=== PATIENT | male | born 1980 | race Caucasian/White ===

== ENCOUNTER → 2016-12-09 | Outpatient (CLI) | payer OTHER | END | disposition home or self-care (01) | LOC: C.LABSPEC 15:01 | PROVIDERS: ATTEND Family Medicine | DX: R30.0 Dysuria (principal) ==

== ENCOUNTER → 2017-02-04 | Outpatient (CLI) | payer OTHER ==
--- NOTE | 2017-02-04 15:22 | DIAGNOSTIC IMAGING REPORT ---
[facility] CLINICAL HISTORY: Abdominal pain. COMPARISON STUDY: None. FINDINGS: The bowel gas pattern is normal. No renal calculi are identified. A few pelvic calcifications are noted, the largest of which is a 5 mm right pelvic calcification. There are scrotal surgical clips. Skeletal structures are unremarkable. IMPRESSION: 1. No evidence for a bowel obstruction. 2. Several pelvic calcifications, including a 5 mm right pelvic calcification. These statistically reflect phleboliths although distal ureteral calculi could appear similar. Electronically signed by: Andre Arnold M.D. 02/04/2017 3:19 PM Dictated Date/Time: 02/04/2017 3:17 PM
[2017-02-04 15:37] LABS: BASO % 0.5 %; BASO ABS # 0.04 K/uL (0-0.2); COMPLETE YES; EOS % 3.4 %; HEMATOCRIT 44.9 % (42-52); IG% 0.1 %; LYMPH ABS # 3.17 K/uL (1.2-3.4); MEAN CELL VOLUME 90.7 fL (80-100); MEAN CORPUSCULAR HEMOGLOBIN 30.9 pg (25-34); MEAN CORPUSCULAR HGB CONC 34.1 g/dl (32-36); MEAN PLATELET VOLUME 9.6 fL (7.4-10.4); MONO % 6.7 %; NEUT % 49.3 %; PLATELET COUNT 259 K/uL (130-400); RED BLOOD COUNT 4.95 M/uL (4.7-6.1); WHITE BLOOD COUNT 7.92 K/uL (4.8-10.8)
[2017-02-04 16:07] LABS: BLOOD UREA NITROGEN 14 mg/dl (7-18); BUN/CREATININE RATIO 13.1 (10-20); CALCIUM 9.2 mg/dl (8.5-10.1); CARBON DIOXIDE 30 mmol/L (21-32); CHLORIDE 104 mmol/L (98-107); GLUCOSE 89 mg/dl (70-99); POTASSIUM 3.8 mmol/L (3.5-5.1); SODIUM 140 mmol/L (136-145)
== END | disposition home or self-care (01) ==
LOC: C.RAD 14:55
PROVIDERS: ATTEND Urology
DX: R10.9 Unspecified abdominal pain (principal)

== ENCOUNTER → 2017-03-19 | Outpatient (CLI) | payer OTHER ==
--- NOTE | 2017-03-19 14:33 | DIAGNOSTIC IMAGING REPORT ---
Limited abdominal ultrasound ABDOMEN FOR HERNIA CLINICAL HISTORY: Groin pain TECHNIQUE: Ultrasound COMPARISON STUDY: None FINDINGS: Findings consistent with a reducible bilateral fat-containing inguinal hernias. No evidence for bowel containment. IMPRESSION: Bilateral reducible fat-containing inguinal hernias. No evidence of bowel containment. Electronically signed by: Jose Luis Mi M.D. 03/19/2017 2:31 PM Dictated Date/Time: 03/19/2017 2:30 PM
== END | disposition home or self-care (01) ==
LOC: C.ULTR 13:34
PROVIDERS: ATTEND Nurse Practitioner Family
DX: R10.30 Lower abdominal pain, unspecified (principal)

== ENCOUNTER 2023-06-24 22:53 | Observation (INO) ==
[2023-06-24] MEDS ORDERED: PANTOprazole 40 MG in SYRINGE 0 ML IV ONE (23:25)
[2023-06-24] MEDS ORDERED: ONDANSETRON INJ 2 MG/ML 2 ML VIAL IV STA (23:25)
[2023-06-24] MEDS ORDERED: MoRPHine SULFATE 4 MG/ML 1 ML CARP\\VIAL IV PRN (23:25)
[2023-06-24] MEDS ORDERED: AMPICILLIN/SULBACTAM SOD 3,000 MG in 0.9 % SODIUM CHLORIDE 100 ML IV STA (23:25)
[2023-06-25 00:04] LABS: Basophils # (auto) 0.08 K/uL (0.00-0.20); Basophils % (auto) 0.9 %; Eosinophils # (auto) 0.34 K/uL (0.00-0.50); Eosinophils % (auto) 3.9 %; Hematocrit (blood only) 42.6 % (42.0-52.0); Hemoglobin 14.3 g/dl (14.0-18.0); Immature Granulocytes # (auto) 0.04 K/uL (0.01-0.20); Immature Granulocytes % (auto) 0.5 %; Lymphocytes # (auto) 3.36 K/uL (1.20-3.40); Lymphocytes % (auto) 38.6 %; Mean Corpuscular Hemoglobin 31.7 pg (25.0-34.0); Mean Corpuscular Hgb Conc 33.6 g/dL (32.0-36.0); Mean Corpuscular Volume 94.5 fL (80.0-100.0); Mean Platelet Volume 9.2 fL (9.4-12.4); Monocytes % (auto) 9.2 %; Neutrophils # (auto) 4.09 K/uL (1.40-6.50); Neutrophils % (auto) 46.9 %; Platelet Count 220 K/uL (130-400); RDW Coefficient of Variation 12.3 % (11.5-14.5); RDW Standard Deviation 42.6 fL (36.4-46.3); Red Blood Count 4.51 M/uL (4.70-6.10); White Blood Count 8.71 K/ul (4.8-10.8)
[2023-06-25 00:14] LABS: Albumin Globulin Ratio 2.1 (0.9-2); Albumin Level 4.4 gm/dl (3.4-5.0); Bilirubin,Total 0.3 mg/dl (0.2-1.0); Calcium 9.2 mg/dl (8.6-10.3); Creatinine Clr Calc Pharmacy 103.5 ml/min; Est GFR (African American) 113.8 ml/min; Est GFR (Non-African American) 98.2 ml/min; Globulin 2.1 gm/dl (2.5-4.0); Potassium 3.7 mmol/L (3.5-5.1); Total Protein 6.5 gm/dl (6.0-8.3)
--- NOTE | 2023-06-25 00:17 | Emergency Department Note ---
History of Present Illness General Chief complaint: Animal Bite Stated complaint: DOG BITE Time Seen by Provider: 06/24/23 23:19 History of Present Illness Maximum Pain Intensity: 8 This is a 43-year-old male presenting to the emergency department from home for evaluation of dog bite to the face. Patient states that he leaned forward to kiss his daughter luis, and the daughter was holding food. The animal jumped up and is believed was going for the food when it bit the patient's face. Patient does have extensive laceration to the right side cheek, lower lip, and mild laceration to the left side cheek. The dog is the family pet and is believed to be otherwise healthy. Patient is up-to-date on immunizations. He rates his discomfort an 8/10. Home Medications Medication Instructions Recorded Confirmed Type No Known Home Medications 06/25/23 06/25/23 History Allergies Allergy/AdvReac Type Severity Reaction Status Date / Time No Known Allergies Allergy Unknown Verified 06/25/23 00:52 Past Med/Surg History Medical History No chronic diseases present Surgical History No significant past surgical history Social History Smoking Status: Current every day smoker Preferred Language: [place] Feels Safe at Home: Yes Review of Systems A total of 10 systems reviewed and were otherwise negative Physical Exam Vital Signs Vital Signs - 24 hr 06/24/23 22:55 06/24/23 23:56 06/25/23 00:29 Temperature 36.4 C L Temperature Source Temporal Artery Scan Pulse Rate 67 92 H Pulse Rate [Right Finger] 74 Pulse Rate from SpO2 Sensor 80 Pulse Rhythm [Right Finger] Regular Pulse Strength [Right Finger] Normal Respiratory Rate 16 17 19 Respiratory Effort / Characteristics Non-Labored Spontaneous Respiratory Depth Normal Respiratory Pattern Regular Blood Pressure 179/101 H 124/82 Blood Pressure [Right Arm] 137/87 Blood Pressure Mean 127 96 Blood Pressure Mean [Right Arm] 103 Blood Pressure Position [Right Arm] Sitting Pulse Oximetry 98 94 96 Oxygen Delivery Method Room Air Room Air Room Air Sepsis Recent Fever Within 48 Hours No Sepsis New/Unexplained Change in Mental Status No Sepsis Action Taken by Nursing No Action Required VITALS: Vitals are noted on the nurse's note and reviewed by myself. Vital signs stable. GENERAL: Well-developed, well-nourished, white male, who is in moderate discomfort secondary to his presenting complaint. HEAD: Normocephalic atraumatic. EARS: External ear normal. External auditory canals clear, tympanic membranes pearly contreras without erythema or effusion bilaterally. EYES: Pupils equal round and reactive to light and accommodation. Conjunctivae without injection, sclerae without icterus. Extraocular movements intact. HEART: Regular rate and rhythm without murmurs gallops or rubs. LUNGS: Clear to auscultation bilaterally without wheezes, rales or rhonchi. No retractions or accessory muscle use. NEURO: Patient was alert and oriented to person place and time. CN II through XII grossly intact. SKIN: The skin was with dog bite laceration to the face. There is a roughly 8 cm J-shaped laceration from the right mid cheek going inferiorly over the lateral margin of the right side lips, and then back up through the lower lip. There is additional injury beneath the left side of the lower lip onto the cheek as well, measuring approximately 5.0 cm. This does cross the vermilion border. The laceration is a through and through laceration at the lips and partially to the cheek on the right. Lacerations gape significantly with movement of the mouth and opening and closing of the jaw. Course Administered Medications Morphine Sulfate (Morphine Sulfate 4 Mg/Ml 1 Ml Carp\Vial) 4 mg IV Q30M PRN PRN Reason: Pain Stop: 07/08/23 23:24 Last Admin: 06/24/23 23:57 Dose: 4 mg Documented By: SHARRI Discontinued Medications Chlorhexidine Gluconate (Chlorhexidine Gluconate 0.12% 480 Ml) 15 ml MT NOW STA Stop: 06/25/23 00:39 Last Admin: 06/25/23 01:03 Dose: 15 ml Documented By: JOAN Ampicillin Sodium/Sulbactam Sodium 3,000 mg/ Sodium Chloride 108 mls @ 200 mls/hr IV NOW STA; Protocol Stop: 06/24/23 23:57 Last Admin: 06/25/23 01:02 Dose: 200 mls/hr Documented By: JOAN Pantoprazole Sodium 40 mg/ (Syringe) 10 mls @ 5 mls/min IV NOW ONE Stop: 06/24/23 23:26 Last Admin: 06/25/23 01:02 Dose: 5 mls/min Documented By: JOAN Ondansetron HCl (Ondansetron Inj 2 Mg/Ml 2 Ml Vial) 4 mg IV NOW STA Stop: 06/24/23 23:26 Last Admin: 06/24/23 23:57 Dose: 4 mg Documented By: SHARRI Medical Decision Making Differential Diagnosis Differential diagnosis includes, but is not limited to: Dog bite, laceration, abrasion, foreign body, infection, sprain, strain, fracture, dislocation, subluxation, contusion, and others Laboratory Data 06/24/23 23:27 06/24/23 23:27 Lab Results 06/24/23 06/24/23 Range/Units 23:27 23:27 WBC 8.71 (4.8-10.8) K/ul RBC 4.51 L (4.70-6.10) M/uL Hgb 14.3 (14.0-18.0) g/dl Hct 42.6 (42.0-52.0) % MCV 94.5 (80.0-100.0) fL MCH 31.7 (25.0-34.0) pg MCHC 33.6 (32.0-36.0) g/dL RDW Std Deviation 42.6 (36.4-46.3) fL RDW Coeff of Alysa 12.3 (11.5-14.5) % Plt Count 220 (130-400) K/uL MPV 9.2 L (9.4-12.4) fL Immature Gran % (Auto) 0.5 % Neut % (Auto) 46.9 % Lymph % (Auto) 38.6 % Barbour % (Auto) 9.2 % Eos % (Auto) 3.9 % Baso % (Auto) 0.9 % Neut # (Auto) 4.09 (1.40-6.50) K/uL Lymph # (Auto) 3.36 (1.20-3.40) K/uL Barbour # (Auto) 0.80 H (0.11-0.59) K/uL Eos # (Auto) 0.34 (0.00-0.50) K/uL Baso # (Auto) 0.08 (0.00-0.20) K/uL Immature Gran # (Auto) 0.04 (0.01-0.20) K/uL Sodium 134 L (136-145) mmol/L Potassium 3.7 (3.5-5.1) mmol/L Chloride 103 (98-107) mmol/L Carbon Dioxide 21 (21-32) mmol/L Anion Gap 10 (3-11) BUN 15 (6-23) mg/dl Creatinine 0.94 (0.6-1.4) mg/dl Est Cr Clr Drug Dosing 103.5 ml/min Est GFR ( Amer) 113.8 ml/min Est GFR (Non-Af Amer) 98.2 ml/min BUN/Creatinine Ratio 16.0 (10-20) Glucose 99 (70-99(Fasting)) mg/dl Calcium 9.2 (8.6-10.3) mg/dl Total Bilirubin 0.3 (0.2-1.0) mg/dl AST 26 (13-39) U/L ALT 25 (7-52) U/L Alkaline Phosphatase 58 (34-104) U/L Total Protein 6.5 (6.0-8.3) gm/dl Albumin 4.4 (3.4-5.0) gm/dl Globulin 2.1 L (2.5-4.0) gm/dl Albumin/Globulin Ratio 2.1 H (0.9-2) MDM Narrative Physical exam and history were performed. Nursing notes, EMR, and Medication List were personally reviewed. No social concerns were identified as barriers to patients care. Patient appears to have laceration to his face as described above. This is quite complicated on examination. IV access was established and labs were obtained. Patient was given IV Unasyn, IV morphine, and IV Zofran. He was given additional IV Protonix as he states that he swallowed blood and this is irritating his stomach. Patient was made n.p.o. and hydrated with normal saline. I did reach out to the on-call oral maxillofacial surgeon, Dr. Stoddard, and reviewed the case at length. Dr. Stoddard will take the patient to the operating room for definitive management. Dog bite form was completed. Please see Dr. Stoddard's dictation for further patient course, plan, disposition. The chart was completed utilizing [employer] Voice Recognition Software. Grammatical errors, random word insertions, pronoun errors, and incomplete sentences are an occasional consequence of this system due to software limita tions, ambient noise, and hardware issues. Any formal questions or concerns about the content, text, or information contained within the body of this dictation should be directly addressed to the provider for clarification. . Impression & Plan Dog bite of vermilion border of lower lip, Dog bite of chin, Dog bite of cheek Discharge Plan Visit Data Chief Complaint: Animal Bite Stated Complaint: DOG BITE ED Provider: Jose Luis Parisi ED Midlevel Provider: Juan Pablo Quintanilla Discharge Problem: Dog bite of vermilion border of lower lip, Dog bite of chin, Dog bite of cheek Patient Disposition: Admitted As Inpatient Discharge Instructions Interventions: ED Discharge Assessment Last Done: 06/25/23 01:39
[2023-06-25] MEDS ORDERED: CHLORHEXIDINE GLUCONATE 0.12% 480 ML MT STA (00:38)
[2023-06-25] MEDS ORDERED: oxyCODONE/ACETAMINOPHEN 5mg/325mg TAB PO PRN (00:40)
--- NOTE | 2023-06-25 00:46 | History & Physical Report ---
Date of Service June 25, 2023 Assessment & Plan (1) Dog bite of cheek: Plan: observation and plan debridement and repair in OR (2) Dog bite of chin: (3) Dog bite of vermilion border of lower lip: History of Present Illness Primary Care Provider: NO PCP Bitten by family dog Extensive lacerations of the face - chin- lips-keshawn boarders Deep to facial muscles Maximum Pain Intensity: 8 This is a 43-year-old male presenting to the emergency department from home for evaluation of dog bite to the face. Patient states that he leaned forward to kiss his daughter luis, and the daughter was holding food. The animal jumped up and is believed was going for the food when it bit the patient's face. Patient does have extensive laceration to the right side cheek, lower lip, and mild laceration to the left side cheek. The dog is the family pet and is believed to be otherwise healthy. Patient is up-to-date on immunizations. There is a roughly 8 cm J-shaped laceration from the right mid cheek going inferiorly over the lateral margin of the right side lips, and then back up through the lower lip. There is additional injury beneath the left side of the lower lip onto the cheek as well, measuring approximately 5.0 cm. The laceration is a through and through laceration at the lips and partially to the cheek on the right. Lacerations gape significantly with movement of the mouth and opening and closing of the jaw. I reviewed the procedures with Santiago and his . I will plan repair of this complex extensive facial, lip and chin lacerations in the OR this afternoon.All risks were reviewed --pain,swelling, infection, bleeding, scaring, wound care and follow up. Consent signed plan procedure as discussed with [facility] Outpatient after recovery from the GA/Procedure Allergies Allergy/AdvReac Type Severity Reaction Status Date / Time No Known Allergies Allergy Unknown Verified 06/25/23 00:52 Home Medications Medication Instructions Recorded Confirmed Type No Known Home Medications 06/25/23 06/25/23 History Past Med/Surg History Medical History No chronic diseases present Surgical History No significant past surgical history Social History Smoking Status: Current every day smoker Hx Alcohol Use: No Hx Substance Use: No Preferred Language: Slovak Communication Ability: Effective Community Director Required: No Beliefs That Will Affect Care: None Current Living Situation: Family Other Information That Helps Us Care for You: No Feels Safe at Home: Yes Safety Concerns: Feels Safe At This Time Assistive Devices: None Results & Data Results & Data Vital Signs (Past 12 Hours) Vital Signs Temp Pulse Pulse Resp BP BP Pulse Ox 06/25/23 00:29 92 H 19 124/82 96 06/24/23 23:56 74 17 137/87 94 06/24/23 22:55 36.4 C L 67 16 179/101 H 98 O2 Del Method 06/25/23 00:29 Room Air 06/24/23 23:56 Room Air 06/24/23 22:55 Room Air Code Status & VTE Plan VTE Prophylaxis Plan VTE Prophylaxis will be ordered: No Reason for no VTE drug order: Treatment not indicated PG Care Time/CCT Total # of Minutes Spent Total Time Spent with Patient: Total time spent is greater than 50% in coordination of care (as documented) at patient's floor/unit and/or counseling patient: Coding Level of Care Code 18776 INT INP/OBS CARE MIN Diagnoses Dog bite of cheek S01.459A; W54.0XXA Dog bite of chin S01.85XA; W54.0XXA Encounter type: initial encounter Dog bite of vermilion border of lower lip S01.551A; W54.0XXA Encounter type: initial encounter (2) Dog bite of chin Encounter type: initial encounter Qualified Code(s): S01.85XA - Open bite of other part of head, initial encounter; W54.0XXA - Bitten by dog, initial encounter (3) Dog bite of vermilion border of lower lip Encounter type: initial encounter Qualified Code(s): S01.551A - Open bite of lip, initial encounter; W54.0XXA - Bitten by dog, initial encounter
[2023-06-25] MEDS: MoRPHine SULFATE 2 MG/ML CARP IV PRN ×2 (05:26→11:48)
[2023-06-25] MEDS: AMPICILLIN/SULBACTAM SOD 3,000 MG in 0.9 % SODIUM CHLORIDE 100 ML IV SCH ×3 (05:52→18:23)
--- NOTE | 2023-06-25 14:16 | Anesthesiology Consultation ---
Date of Service June 25, 2023 Assessment & Plan Chart Review Chart Review: Acceptable Risk for Surgery and Patient NOT seen in Pre Admission Testing Consults Requested none ASA ASA2 Proposed Anesthesia Anesthesia Type: General History Surgery Operation Date: 06/25/23 07:00 Proposed Procedures p Suture Repair of 15 cm Lip Laceration - Remi Stoddard, DMD Height/Weight Height: 5 ft 10 in Weight: 82.4 kg Allergies Allergy/AdvReac Type Severity Reaction Status Date / Time No Known Allergies Allergy Unknown Verified 06/25/23 00:52 Medications Home Medications Medication Instructions Recorded Confirmed Last Taken No Known Home Medications 06/25/23 06/25/23 Unknown Active Medications Generic Name Dose Route Start Last Admin Trade Name Freq PRN Reason Stop Dose Admin Ampicillin Sodium/Sulbactam 108 mls @ 200 mls/hr 06/25/23 06:00 06/25/23 12:32 Sodium 3,000 mg/ Sodium IV 06/27/23 05:59 Infused Chloride Q6H LADY Infusion Protocol Morphine Sulfate 2 mg 06/25/23 02:59 06/25/23 11:48 Morphine Sulfate 2 Mg/Ml Carp IV 07/09/23 02:58 2 mg Q4 PRN Administration Pain Past Medical History Medical History No chronic diseases present HLD + tobacco smoker Exercise / Class Metabolic Activity II 4-5 Yardwork/Stairs/Walk up hill Past Surgical History Surgical History No significant past surgical history Past Anesthesia History No Hx of Anesthesia Complications and No Family Hx of Anesthesia Complications History of PONV No Hx of PONV and No Hx of Motion Sickness Social History Smoking Status: Current every day smoker Hx Alcohol Use: No Hx Substance Use: No Physical Exam Vital Signs Last Vital Signs Temp 36.9 C 06/25/23 08:56 Pulse 57 L 06/25/23 08:56 Resp 16 06/25/23 08:56 BP 132/80 06/25/23 08:56 Pulse Ox 96 06/25/23 08:56 O2 Del Method Room Air 06/25/23 08:56 Testing Laboratory Results 06/24/23 23:27 06/24/23 23:27
[2023-06-25] MEDS ORDERED: LACTATED RINGER'S 1,000 ML IV SCH (14:45)
[2023-06-25] MEDS ORDERED: ATROPINE SULFATE 0.1 MG/ML 10ML SYR IV PRN (14:52)
[2023-06-25] MEDS ORDERED: PROMETHAZINE HCL 12.5 MG in SODIUM CHLORIDE 0.9% 50 ML IV PRN (14:52)
[2023-06-25] MEDS ORDERED: ONDANSETRON INJ 2 MG/ML 2 ML VIAL IV PRN (14:52)
[2023-06-25] MEDS ORDERED: FLUMAZENIL 0.1 MG/1 ML 10 ML VIAL IV PRN (14:52)
[2023-06-25] MEDS ORDERED: ePHEDrine sulfate 50 MG/ML AMP IV PRN (14:52)
[2023-06-25] MEDS ORDERED: NALOXONE HCL 0.4 MG/1 ML VIAL/CARP IV PRN (14:52)
[2023-06-25] MEDS ORDERED: fentaNYL citrate PF 100 MCG/2 ML VIAL IV PRN (14:52)
[2023-06-25] MEDS ORDERED: HYDROmorphone INJ 1 MG/ML SYRINGE IV PRN (14:52)
[2023-06-25] MEDS ORDERED: fentaNYL citrate PF 100 MCG/2 ML VIAL ONE ×2 (15:17→15:56)
[2023-06-25] MEDS ORDERED: MIDAZOLAM HCL 1 MG/ML 2ML VIAL ONE (15:17)
[2023-06-25] MEDS ORDERED: PROPOFOL IV EMULSION 10 MG/ML 20 ML VIAL IV ONE (15:17)
[2023-06-25] MEDS ORDERED: LIDOCAINE 2% 2 ML VIAL/AMP(20MG/ML) INFIL ONE (15:17)
[2023-06-25] MEDS ORDERED: DEXAMETHASONE SOD INJ 4 MG/ML VIAL ONE (15:17)
[2023-06-25] MEDS ORDERED: ONDANSETRON INJ 2 MG/ML 2 ML VIAL ONE (15:17)
[2023-06-25] MEDS ORDERED: ROCURONIUM BROMIDE 10 MG/ML 5 ML VIAL IV ONE (15:20)
[2023-06-25] MEDS ORDERED: NEOSTIGMINE METHYLSULFATE 1 MG/ML 10ML VIAL ONE (15:39)
[2023-06-25] MEDS ORDERED: GLYCOPYRROLATE 0.2 MG/ML VIAL ONE (15:39)
[2023-06-25] MEDS ORDERED: CHLORHEXIDINE GLUCONATE 0.12% 480 ML MT ONE (15:43)
[2023-06-25] MEDS ORDERED: BUPIVACAINE/EPINEPHRINE 0.5% 1:200,000 1.8 ML CARP ONE (15:43)
[2023-06-25] MEDS ORDERED: KETAMINE 50 MG/5 ML SYRINGE ONE (15:49)
--- NOTE | 2023-06-25 17:45 | Anesthesiology Progress Note ---
Date of Service June 25, 2023 Anesthesia Post Procedure Vital Signs Vital Signs: Temp Pulse Pulse Pulse Resp BP BP 06/25/23 17:40 53 L 18 146/86 H 06/25/23 17:30 57 L 20 151/91 H 06/25/23 17:20 79 16 146/93 H 06/25/23 17:17 97.0 F L 95 H 16 156/108 H 06/25/23 14:35 97.0 F L 62 20 124/87 06/25/23 08:56 98.4 F 57 L 16 132/80 06/25/23 03:17 97.5 F L 77 18 126/86 06/25/23 01:00 72 20 114/64 06/25/23 00:29 92 H 19 124/82 06/24/23 23:56 74 17 137/87 06/24/23 22:55 97.5 F L 67 16 179/101 H Pulse Ox O2 Del Method 06/25/23 17:40 99 Room Air 06/25/23 17:30 99 Room Air 06/25/23 17:20 100 Room Air 06/25/23 17:17 97 Room Air 06/25/23 14:35 100 Room Air 06/25/23 08:56 96 Room Air 06/25/23 03:17 98 Room Air 06/25/23 01:00 94 Room Air 06/25/23 00:29 96 Room Air 06/24/23 23:56 94 Room Air 06/24/23 22:55 98 Room Air Pain Intensity Face: Pain Intensity: 6 Transfer of Care Handoff Completed per policy Notes Mental Status: alert / awake / arousable and participated in evaluation Patient Amnestic to Procedure: Yes Nausea / Vomiting: adequately controlled Pain: adequately controlled Airway Patency, RR, SpO2: stable & adequate BP & HR: stable & adequate Hydration State: stable & adequate Anesthetic Complications: no major complications apparent and Pt Satisfied with anesthetic care
--- NOTE | 2023-06-30 16:49 | Operative Report ---
PG Post Operative Report Pre & Post Diagnosis Operation Date: 06/25/23 07:00 Pre-Op Diagnosis: Dog bite of cheek complex closure 15 cm total length Post-Op Diagnosis: Dog bite of cheek (same) Diagnoses Dog bite of cheek S01.459A; W54.0XXA Dog bite of chin S01.85XA; W54.0XXA Encounter type: initial encounter Dog bite of vermilion border of lower lip S01.551A; W54.0XXA Encounter type: initial encounter CPT coding for a complex 15 cm laceration repair CPT 51738 for the first 7.5 cm CPT 63014 for the next 5 cm CPT 45190 for the next 5 cm I identified the patient and participated in the time-out.: Yes Procedure Operation Date: 06/25/23 07:00 Actual Procedures p Suture Repair of 15 cm Lip Laceration(Bilateral) - Remi Stoddard, DMD Surgeon Remi Stoddard, DMD Social Science Instructor none Estimated Blood Loss 10 Findings Consistent with Post-Op Diagnosis extensive deep complex dog bite bounds to lip, chin, cheeks Specimens none Drains none Anesthesia Type General Complications none Indications Dog Bite injury Description of Procedure Diagnoses Dog bite of cheek S01.459A; W54.0XXA Dog bite of chin S01.85XA; W54.0XXA Encounter type: initial encounter Dog bite of vermilion border of lower lip S01.551A; W54.0XXA Encounter type: initial encounter CPT coding for a complex 15 cm laceration repair CPT 05333 for the first 7.5 cm CPT 43105 for the next 5 cm CPT 39863 for the next 5 cm DATE OF OPERATION May Pre-op: Deep irregular complex wound of the lower face secondary to a dog bite. Post-op: Same Procedure: Complex repair of 15 cm deep laceration of the chin, cheeks and lips secondary to dog bite injury Once cleared for surgery general anesthesia was achieved, the eyes were protected by the anesthesia dept criteria. A time out was take for patient ID, equipment and position verification once all agreed the procedure began. Local anesthesia was given into the area using Marcaine with/out a vasoconstrictor ( approx 6 ml ). Once a surgical level of anesthesia was obtained and the local anesthesia was given time for the blocks the surgery was started. I turned my attention to the 9 cm laceration right side--cheek, chin, keshawn and lip mucosa, this was a deep through the muscle complex laceration. Facial laceration repair: The repair of a 9 cm right side laceration involving the -cheek, chin, keshawn and lip mucosa, this was a deep through the muscle complex laceration. I scrubbed and reprepped the laceration and irrigated with an NS then turned my attention to the laceration. The laceration was approximately 9 cm long. It was very irregular and deep, the muscle was involved the nerves were in tack.. I used an electrocautery instrument and cauterized any bleeders. The wound was irrigated and scrubbed. I then inspected the deep aspects of the wound--there was a full thickness through-through laceration of the lower right lip. The closure of the laceration was now started using 6-0 Vicryl suture to line up the deep muscles and know anatomic landmarks such as Muco-cutaneous line and keshawn boarder. To accomplish this the tissue was undermined to allow for a relaxed closure especially where tissue loss occurred as a result of the dog bite. Once these landmarks were aligned I used 5 and 6 0-Vicryl sutures for the deep and sub Q tissues -the skin was now lined up well the skin was closed with a 6-0 nylon suture. For the lip I used the Vicryl suture and then from the keshawn and around the laceration I used a combination of both 5 and 6 -0 Nylon. I now turned my attention to the left side deep 6 cm deep laceration just superficial to the mucosa of the mouth. The facial nerve were not involved. The laceration was approximately 6 cm long. It was very irregular and deep, the muscle was involved the nerves were in tack. I used an electrocautery instrument and cauterized any bleeders. The wound was irrigated and scrubbed. I then inspected the deep aspects of the wound--there was a full thickness almost through-through laceration of the mouth. The closure of the laceration was now started using 5-0 Vicryl suture to line up the deep muscles and know anatomic landmarks. To accomplish this the tissue was undermined to allow for a relaxed closure especially where tissue loss occurred as a result of the dog bite. Once these landmarks were aligned I used 5 and 6 0-Vicryl sutures for the deep and sub Q tissues -the skin was now lined up well and the skin was closed with a 6-0 nylon suture. I used a combination of both 5 and 6 -0 Nylon to repair this irregular very deep wound. A very nice cosmetic closure of this 15 cm complex irregular laceration was achieved. Steri Strips were placed. This was an complex closure of a complex 15 cm laceration secondary to a dog bite injury. Once the case was completed I inspected the sites to insure all bleeding was controlled. the patient was allowed to awake from the anesthesia. Once full awake the anesthesia tube was removed and the patient was taken to the recovery room with all vital sign stable. The patient tolerated the surgery very well. I will follow the patient in my office, Rx and instructions will be given upon discharge. I attest to the content of the Intraoperative Record and any orders documented therein. Any exceptions are noted below.
--- NOTE | 2023-06-30 16:55 | Discharge Summary ---
Date of Service June 25, 2023 Pre-op: Deep irregular complex wound of the lower face secondary to a dog bite. Post-op: Same Procedure: Complex repair of 15 cm deep laceration of the chin, cheeks and lips secondary to dog bite injury Once cleared for surgery general anesthesia was achieved, the eyes were protected by the anesthesia dept criteria. A time out was take for patient ID, equipment and position verification once all agreed the procedure began. Local anesthesia was given into the area using Marcaine with/out a vasoconstrictor ( approx 6 ml ). Once a surgical level of anesthesia was obtained and the local anesthesia was given time for the blocks the surgery was started. I turned my attention to the 9 cm laceration right side--cheek, chin, keshawn and lip mucosa, this was a deep through the muscle complex laceration. Upon completion of the case and recovery he was transferred back to his room. Once all criteria for discharge were met he was sent home in care of his family. I will see Santiago on July 01 for suture check and wound check All instruction, prescriptions and follow up care was reviewed. OK for discharge this afternoon. Admission HPI Per Admitting Provider Bitten by family dog Extensive lacerations of the face - chin- lips-keshawn boarders Deep to facial muscles Maximum Pain Intensity: 8 This is a 43-year-old male presenting to the emergency department from home for evaluation of dog bite to the face. Patient states that he leaned forward to kiss his daughter luis, and the daughter was holding food. The animal jumped up and is believed was going for the food when it bit the patient's face. Patient does have extensive laceration to the right side cheek, lower lip, and mild laceration to the left side cheek. The dog is the family pet and is believed to be otherwise healthy. Patient is up-to-date on immunizations. There is a roughly 8 cm J-shaped laceration from the right mid cheek going inferiorly over the lateral margin of the right side lips, and then back up through the lower lip. There is additional injury beneath the left side of the lower lip onto the cheek as well, measuring approximately 5.0 cm. The laceration is a through and through laceration at the lips and partially to the cheek on the right. Lacerations gape significantly with movement of the mouth and opening and closing of the jaw. I reviewed the procedures with Santiago and his . I will plan repair of this complex extensive facial, lip and chin lacerations in the OR this afternoon.All risks were reviewed --pain,swelling, infection, bleeding, scaring, wound care and follow up. Consent signed plan procedure as discussed with [facility] after recovery from the [facility]/Procedure Discharge Data Consultations 06/24/23 23:46 Consult Oromaxillofacial Surgery Stat Procedures Performed Operation Date: 06/25/23 07:00 Actual Procedures p Suture Repair of 15 cm Lip Laceration(Bilateral) - Remi Stoddard DMD Coding Level of Care Code New Pt INP/OBS EV SAME DAY LV 1,45MIN Patient Type New History Expanded Problem Focused Exam Expanded Problem Focused Medical Decision Making Straight Forward Diagnoses
== END 2023-06-25 19:14 | disposition home or self-care (01) ==
LOC: ED 22:53 → 3E 22:53